=== PATIENT | female | born 1950 | race Caucasian/White ===

== ENCOUNTER 2022-10-15 13:55 | Emergency (ER) | payer MEDICARE ==
[~2022-10-15] VITALS: Ht 170.2 cm; Wt 112.3 kg
[~2022-10-15 13:55] MED LIST: ALBUTEROL2.5 MG/3 M INH; ASPIRIN EC81 MG PO; BP MED PO; CLONIDINE HCL0.1 MG PO; IPRATROPIU0.2 MG/1 M IH; LASIX80 MG PO; LEVOTHYROXINE50 MCG PO; LISINOPRIL20 MG PO; METFORMIN HCL1000 MG PO; NORCO 5-325 TA1 EACH PO; PROVENTIL HFA6.7 GM INH; ROPINIROLE HCL2 MG PO; SIMVASTATIN20 MG PO; SINGULAIR10 MG PO; TYLENOL325 MG PO
--- OUTSIDE RECORDS SUMMARY | 2022-10-15 13:57 | XMS ---
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 Matias has no Care Guidelines for this patient. Karri VISIT COUNT (12 MO.) 1 NAJMA Mcgregor TOTAL 1 NOTE: Visits indicate total known visits. ED/C VISIT TRACKING (12 MO.) 10/15/2022 13:56 NAJMA Guzman [place] TYPE: Emergency COMPLAINT: - SKIN PROBLEM INPATIENT VISIT TRACKING (12 MO.) No inpatient visits to display in this time frame [email or web address]
[2022-10-15] MEDS ORDERED: CEPHALEXIN500 M1 PO (15:06)
== END 2022-10-15 15:44 | disposition home or self-care (01) ==
LOC: ED 13:55
DX: N90.89 Other specified noninflammatory disorders of vulva and perineum (principal); I10 Essential (primary) hypertension; E11.9 Type 2 diabetes mellitus without complications; Z85.3 Personal history of malignant neoplasm of breast; J44.9 Chronic obstructive pulmonary disease, unspecified; E78.00 Pure hypercholesterolemia, unspecified; F17.200 Nicotine dependence, unspecified, uncomplicated; Z79.899 Other long term (current) drug therapy; Z79.82 Long term (current) use of aspirin; Z79.84 Long term (current) use of oral hypoglycemic drugs
CPT/HCPCS: 99282; A9270

== ENCOUNTER 2023-12-26 11:48 | Day surgery (SDC) | payer MEDICARE ==
[~2023-12-26] VITALS: Ht 170.2 cm; Wt 104.5 kg
[~2023-12-26 11:48] MED LIST changes: +CEPHALEXIN500 M1 PO; +IBLOOD GLUCOSE TEST STRIP 1 EA TEST VI PRN; +LACTATED RINGER'S 1,000 ML IV SCH; +LIDOCAINE HCL 1% 5 ML SDV INJ ONE; +LIDOCAINE HCL 4% 50 ML BTL TOP SCH; +MIDAZOLAM HCL 5 MG/5 ML VIAL IV PRN; +fentaNYL citrate 100 MCG/2 ML VIAL IV PRN
[2023-12-26 12:08] VITALS: BP 130/57
[2023-12-26] MEDS ORDERED: MIDAZOLAM HCL 5 MG/5 ML VIAL ONE ×2 (12:44→13:26)
[2023-12-26] MEDS ORDERED: fentaNYL citrate 100 MCG/2 ML VIAL ONE ×2 (12:44→13:25)
--- NOTE | 2023-12-26 14:09 | NUR ---
12/26/23 1409 Sophie Fowler 1401 PT TO PACU SLEEPING BUT AROUSABLE DENIES PAIN AND NAUSEA.
[2023-12-26 14:31] VITALS: BP 119/57
--- NOTE | 2023-12-27 08:37 | OR ---
[facility] [address], [place] [address] Signed DATE OF OPERATION: 12/26/2023 SURGEON: Monico Howard MD PREOPERATIVE DIAGNOSIS: Colon screening. POSTOPERATIVE DIAGNOSIS: Multiple polyps (11). PROCEDURE: Total colonoscopy to cecum with cold morcellation polypectomy x7 and cold snare polypectomy x4. ANESTHESIA: Intravenous sedation; fentanyl 150 mcg, Versed 9 mg. INDICATION: This 73-year-old woman is a patient Dr. Mendiola at [facility]. She underwent colonoscopy in the distant past with uncertain findings. The patient is uncertain whether she actually had any polyps. 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 She has no known recurrent breast cancer. She is free of symptoms of bleeding, diarrhea or constipation. She is now to undergo colonoscopy. She understands the risk of bleeding, infection, and perforation. FINDINGS: The prep was excellent. Complete colonoscopy was undertaken to the cecum. There were multiple polyps throughout the colon. This included on the ileocecal valve. The left and right transverse and mid colon as well as the left colon, sigmoid, rectosigmoid, and rectum. PROCEDURE IN DETAIL: The patient was brought to the endoscopy suite and placed in lateral decubitus position, given intravenous sedation to the point of slurred speech and nystagmus. Digital rectal examination was normal. An Olympus video colonoscope was passed in the rectum and manipulated throughout the colon. There were several polyps along the way, which were excised including cold snare polypectomy of a mid left colonic polyp and two polyps of the left transverse colon. Electronically Signed By: MONICO HOWARD MD 12/27/23 0837 PATIENT NAME: LASHA REY OPERATIVE REPORT DATE OF : 48 REPORT #: [id number] PHYSICIAN: MONICO HOWARD MD PCP: STEFFEN MENDIOLA MD REPORT IS CONFIDENTIAL AND NOT TO BE RELEASED WITHOUT AUTHORIZATION [facility] [address] [place], [place] [address] Signed Scope was passed ultimately to the cecum. There was a small polyp of the ileocecal valve, which was excised with cold morcellation technique. The scope was then withdrawn, examination once again undertaken. Another polyp in the right transverse colon and mid transverse colon was excised with cold morcellation technique. Two additional with cold morcellation technique, another of the left transverse with snare technique and two others in the sigmoid and one in the rectosigmoid. In total of 11 polyps were resected, four by snare technique. She was taken to the recovery room in good condition. Retroflexed view was normal. ASSESSMENT: Multiple small polyps distributed throughout the colon. PLAN: Recommend repeat colonoscopy in one year due to the numerous polyps noted. Consideration for propofol sedation in the future for optimal tolerance. MD HANNAH Herrera/MINDA /[id number] cc: Dr. Mendiola [facility] Copies: ~ Electronically Signed By: MONICO HOWARD MD 12/27/23 0837 PATIENT NAME: ROCHELLEHEATHERLASHAPhilip ENAMORADO OPERATIVE REPORT DATE OF : 48 REPORT #: [id number] PHYSICIAN: MONICO HOWARD MD PCP: STEFFEN MENDIOLA MD REPORT IS CONFIDENTIAL AND NOT TO BE RELEASED WITHOUT AUTHORIZATION
--- NOTE | 2023-12-29 17:52 | PATH ---
[facility] [address] [place] [address] Signed SPECIMEN(S): A DESCENDING POLYP SPECIMEN(S): B DESCENDING POLYP SPECIMEN(S): C TRANSVERSE POLYP SPECIMEN(S): D RIGHT TRANSVERSE POLYP SPECIMEN(S): E ILEOCECAL VALVE POLYP SPECIMEN(S): F MID TRANSVERSE POLYPS SPECIMEN(S): G LEFT TRANSVERSE POLYP SPECIMEN(S): H SIGMOID POLYP SPECIMEN(S): I RECTOSIGMOID POLYP SPECIMEN SOURCE: A. DESCENDING POLYP B. DESCENDING POLYP C. TRANSVERSE POLYP D. RIGHT TRANSVERSE POLYP E. ILEOCECAL VALVE POLYP F. MID TRANSVERSE POLYPS G. LEFT TRANSVERSE POLYP H. SIGMOID POLYP I. RECTOSIGMOID POLYP CLINICAL HISTORY: Pre: Prior colonoscopy in the distant past, no records available for results. Post: Multiple polyps. FINAL PATHOLOGIC DIAGNOSIS: A. Descending polyp: - Tubular adenoma (one fragment). B. Descending polyp: - Tubular adenoma. C. Transverse polyp: - Tubular adenoma. D. Right transverse polyp: - Tubular adenoma (one fragment). - Hyperplastic polyp (one fragment). E. Ileocecal valve polyp: - Tubular adenoma (three fragments). F. Mid transverse polyps: - Tubular adenoma (two fragments). G. Left transverse polyp: - Tubular adenoma (multiple fragments). PATIENT NAME: LASHA REY PATHOLOGY DATE OF : 48 REPORT #: [id number] PHYSICIAN: ERIKA PATHOLOGY PCP: STEFFEN WALLS MD REPORT IS CONFIDENTIAL AND NOT TO BE RELEASED WITHOUT AUTHORIZATION [facility] [address] [place], [place] [address] Signed H. Sigmoid polyp: - Hyperplastic polyp (one fragment). I. Rectosigmoid polyp: - Hyperplastic polyp (two fragments). JVR:vahe MICROSCOPIC EXAMINATION: Histologic sections of all submitted blocks are examined by light microscopy. These findings, together with the gross examination, support the pathologic diagnosis. GROSS DESCRIPTION: A. The specimen, labeled and designated "Rachel, " and designated on the requisition "descending/left polypectomy," is received in formalin and consists of one fragment of soft lyon tissue that is up to 0.3 cm in greatest dimension. Entirely submitted in (A1). B. The specimen, labeled and designated "Rachel, " and designated on the requisition "descending/left," is received in formalin and consists of one fragment of soft lyon tissue that is up to 0.6 cm in greatest dimension. Entirely submitted in (B1). C. The specimen, labeled and designated "Rachel, " and designated on the requisition "transverse polyp," is received in formalin and consists of one fragment of soft lyon tissue that is up to 0.8 cm in greatest dimension. Entirely submitted in (C1). D. The specimen, labeled and designated "Mazindorinda, " and designated on the requisition "right transverse polyp," is received in formalin and consists of two fragments of soft lyon tissue that are up to 0.3 cm in greatest dimension. Entirely submitted in (D1). E. The specimen, labeled and designated "Mazindorinda, " and designated on the requisition "ileocecal valve polyp," is received in formalin and consists of three fragments of soft lyon tissue that are up to 0.4 cm in greatest dimension. Entirely submitted in (E1). F. The specimen, labeled and designated "Skeman, " and designated on the requisition "mid transverse," is received in formalin and consists of four fragments of soft lyon tissue that are up to 0.5 cm in greatest dimension. Entirely submitted in (F1). G. The specimen, labeled and designated "Rachel, " and designated on the requisition "left transverse polyp," is received in formalin and consists of four fragments of soft lyon tissue that are up to 1.5 cm in greatest dimension. Entirely submitted in (G1). PATIENT NAME: LASHA REY PATHOLOGY DATE OF : 48 REPORT #: [id number] PHYSICIAN: ERIKA PATHOLOGY PCP: STEFFEN WALLS MD REPORT IS CONFIDENTIAL AND NOT TO BE RELEASED WITHOUT AUTHORIZATION [facility] [address] [place], [place] [address] Signed H. The specimen, labeled and designated "Rachel, " and designated on the requisition "sigmoid polyp," is received in formalin and consists of one fragment of soft lyon tissue that is up to 0.3 cm in greatest dimension. Entirely submitted in (H1). I. The specimen, labeled and designated "Rachel, " and designated on the requisition "rectosigmoid polyp," is received in formalin and consists of two fragments of soft lyon tissue that are up to 0.3 cm in greatest dimension. Entirely submitted in (I1). TW (under the direct supervision of a pathologist) The Gross Description was prepared using a voice recognition system. The report was reviewed for accuracy; however, sound-alike word errors, addition and/or deletions may occur. If there is any question about this report, please contact Client Services. PERFORMING LABORATORY: Technical component was performed by [facility], [address] [place] [id number] (CLIA# [id number]). Professional interpretation was performed by [facility], [address] [place] [id number] (CLIA#: [id number]). Diagnostician: Ashok Paz MD Pathologist Electronically Signed 12/29/2023 Copies: ~ PATIENT NAME: LASHA REY PATHOLOGY DATE OF : 48 REPORT #: [id number] PHYSICIAN: ERIKA JORGE PCP: STEFFEN WALLS MD REPORT IS CONFIDENTIAL AND NOT TO BE RELEASED WITHOUT AUTHORIZATION
== END 2023-12-26 14:45 | disposition home or self-care (01) ==
LOC: OPS 11:48 → DS 11:48 → OPS 13:00
PROVIDERS: ATTEND Surgery
PROC: 0DBL8ZX Excision of Transverse Colon, Via Natural or Artificial Opening Endoscopic, Diagnostic (ICD-10-PCS; 2023-12-26)
PROC: 0DBN8ZX Excision of Sigmoid Colon, Via Natural or Artificial Opening Endoscopic, Diagnostic (ICD-10-PCS; 2023-12-26)
PROC: 0DBC8ZX Excision of Ileocecal Valve, Via Natural or Artificial Opening Endoscopic, Diagnostic (ICD-10-PCS; 2023-12-26)
PROC: 0DBM8ZX Excision of Descending Colon, Via Natural or Artificial Opening Endoscopic, Diagnostic (ICD-10-PCS; principal; 2023-12-26 13:00)
DX: Z12.11 Encounter for screening for malignant neoplasm of colon (principal); D12.4 Benign neoplasm of descending colon; D12.0 Benign neoplasm of cecum; D12.3 Benign neoplasm of transverse colon; C50.911 Malignant neoplasm of unspecified site of right female breast; I10 Essential (primary) hypertension; E66.9 Obesity, unspecified; E03.9 Hypothyroidism, unspecified; E11.9 Type 2 diabetes mellitus without complications; F17.210 Nicotine dependence, cigarettes, uncomplicated; J45.909 Unspecified asthma, uncomplicated; Z68.36 Body mass index [BMI] 36.0-36.9, adult; Z79.4 Long term (current) use of insulin; Z79.899 Other long term (current) drug therapy; Z79.890 Hormone replacement therapy
CPT/HCPCS: 88305; 99153; G0500; J2250; J3010; J7121

== ENCOUNTER 2025-07-08 15:54 | Emergency (ER) | payer OTHER, MEDICARE ==
[~2025-07-08] VITALS: Ht 170.2 cm; Wt 99.0 kg
--- OUTSIDE RECORDS SUMMARY | ~2025-07-08 | XMS | Continuity of Care Document ---
Demographics + + + | Address | [facility] [address] [address] | | | [place] [address] | + + + | Preferred Language | Unknown | + + + | Marital Status | | + + + | Adventist Affiliation | Unknown | + + + | Race | White | + + + | Ethnic Group | Not or | + + + Author + + + | Author | [facility] | + + + | Organization | [facility] | + + + | Address | [address] | | | [place] [address] | + + + | Phone | | + + + Care Team Providers + + + + | Care Dungeon Master Name | Role | Phone | + + + + Unavailable | Unavailable | + + + + Unavailable | Unavailable | + + + + Allergies and Intolerances + + + + + + | date | description | facility | reaction | severity | + + + + + + | 2025-04-09 | UNK | [facility] - | (no reaction) | (no severity) | | 00:00 | | [facility] | | | | | | [facility] | | | + + + + + + Encounters No information. Functional Status No information. Immunizations No information. Medications + + + + | date | description | facility | + + + + | (no date) | CETIRIZINE HCL | [facility] | | | | [facility] | + + + + | (no date) | Budesonide/Formoterol | [facility] | | | Fumarate | [facility] | + + + + | (no date) | MONTELUKAST SODIUM | [facility] | | | | [facility] | + + + + | (no date) | IPRATROPIUM BROMIDE | [facility] | | | | [facility] | + + + + | (no date) | SPIRONOLACTONE | [facility] | | | | [facility] | + + + + | (no date) | FUROSEMIDE | [facility] | | | | [facility] | + + + + | (no date) | CALCITRIOL | [facility] | | | | [facility] | + + + + | (no date) | GABAPENTIN | [facility] | | | | [facility] | + + + + | (no date) | ROPINIROLE HCL | [facility] | | | | [facility] | + + + + | (no date) | SIMVASTATIN | [facility] | | | | [facility] | + + + + | (no date) | LISINOPRIL | [facility] | | | | [facility] | + + + + | (no date) | ASPIRIN | [facility] | | | | [facility] | + + + + | (no date) | ATORVASTATIN | [facility] | | | | [facility] | + + + + | (no date) | ALBUTEROL SULFATE | [facility] | | | | [facility] | + + + + | (no date) | METFORMIN HCL | [facility] | | | | [facility] | + + + + | (no date) | CLONIDINE HCL | [facility] | | | | [facility] | + + + + | (no date) | LEVOTHYROXINE SODIUM | [facility] | | | | [facility] | + + + + Problems No information. Procedures + + + + | date | description | facility | + + + + | 2025-04-09 00:00 | Colonoscopy with biopsy of | [facility] | | | colon | [facility] | + + + + | 2025-04-09 00:00 | Colonoscopy with biopsy of | [facility] | | | colon | [facility] | + + + + Results/Labs +--------+--------+ +---------+--------+---------+ | test | date | facility | value | unit | notes | +--------+--------+ +---------+--------+---------+ + + | Result panel 1 | + + + + + +-------+---------+ + | Glucose | 2025-04-09 | | 137 | mg/dL | (missing) | | SerPl-mCnc | 11:40:07 | [facility] | [facility] | | | | + + + +-------+---------+ + + + | Result panel 2 | + + + + + +------+ + + | CO2 | 2025-04-09 | | 25 | (missing) | (missing) | | SerPl-sCnc | 11:40:07 | [facility] | | | | | | [facility] | | | | + + + +------+ + + + + | Result panel 3 | + + + + + +--------+ + + | Anion Gap | 2025-04-09 | | 12.1 | (missing) | (missing) | | SerPl | 11:40:07 | [facility] | | | | | Calculated.4 | [facility] | [facility] | | [facility] | | [facility] | | | | + + + +--------+ + + + + | Result panel 4 | + + + + + +-------+---------+ + | Calcium | 2025-04-09 | | 9.2 | mg/dL | (missing) | | SerPl-mCnc | 11:40:07 | [facility] | | | | | | [facility] | | | | + + + +-------+---------+ + + + | Result panel 5 | + + + + + +------+---------+ + | BUN | 2025-04-09 | | 14 | mg/dL | (missing) | | Jd-Ijeoma | 11:40:07 | [facility] | | | | | [facility] | | | | + + + +------+---------+ + + + | Result panel 6 | + + + + + +--------+---------+ + | Creat | 2025-04-09 | | 1.26 | mg/dL | (missing) | | SerPl-mCnc | 11:40:07 | [facility] | | | | | | [facility] | | | | + + + +--------+---------+ + + + | Result panel 7 | + + + + + +------+ + + | eGFRcr | 2025-04-09 | | 45 | (missing) | (missing) | | SerPlBld | 11:40:07 | [facility] | | | | | CKD-EPI 2020 | | [facility] | | | | + + + +------+ + + + + | Result panel 8 | + + + + + +---------+ + + | BUN/Creat | 2025-04-09 | | 11.11 | (missing) | (missing) | | SerPl | 11:40:07 | [facility] | | | | | | | - | | | | | | | [facility] | | | | + + + +---------+ + + + + | Result panel 9 | + + + + + +-------+ + + | Sodium | 2025-04-09 | | 125 | (missing) | (missing) | | SerPl-sCnc | 11:40:07 | [facility] | | | | | | [facility] | | | | + + + +-------+ + + + + | Result panel 10 | + + + + + +-------+ + + | Potassium | 2025-04-09 | | 5.1 | (missing) | (missing) | | SerPl-sCnc | 11:40:07 | [facility] | | | | | [facility] | | | | + + + +-------+ + + + + | Result panel 11 | + + + + + +------+ + + | Chloride | 2025-04-09 | | 93 | (missing) | (missing) | | SerPl-sCnc | 11:40:07 | [facility] | | | | | | [facility] | | | | + + + +------+ + + + + | Result panel 12 | + + + + + +-------+ + + | Glucose | 2025-04-09 | | 125 | (missing) | (missing) | | [facility] | 11:47:07 | [facility] | | | | | [facility] | | | | + + + +-------+ + + Social History +--------+ + + | date | description | facility | +--------+ + + Vital Signs + + +---------+---------+ | date | measurement | value | units | + + +---------+---------+ | 2025-04-09 00:00 | BP_diastolic | 56 | mmHg | + + +---------+---------+ | 2025-04-09 00:00 | BP_systolic | 139 | mmHg | + + +---------+---------+ | 2025-04-09 00:00 | heart_rate | 65 | /min | + + +---------+---------+ | 2025-04-09 00:00 | o2_saturation | 98 | % | + + +---------+---------+ | 2025-04-09 00:00 | respiration_rate | 16 | /min | + + +---------+---------+ | 2025-04-09 00:00 | temperature_metric | 36.56 | C | | | | | | + + +---------+---------+ | 2025-04-09 00:00 | | 97.8 | F | | | temperature_standar | | | | | d | | | + + +---------+---------+"
[~2025-07-08 15:54] MED LIST changes: +ALDACTONE25 MG PO; +ASPIRIN EC325 MG PO; -ASPIRIN EC81 MG PO; +BUDESONIDE-FO10.2 G1 INH; +CALCITRIOL0.25 MCG PO; +GABAPENTIN300 MG PO; -IBLOOD GLUCOSE TEST STRIP 1 EA TEST VI PRN; -IPRATROPIU0.2 MG/1 M IH; +IPRATROPIUM BRO30 ML NAS; -LACTATED RINGER'S 1,000 ML IV SCH; -LIDOCAINE HCL 1% 5 ML SDV INJ ONE; -LIDOCAINE HCL 4% 50 ML BTL TOP SCH; +LIPITOR10 MG PO; -MIDAZOLAM HCL 5 MG/5 ML VIAL IV PRN; +MULTI VITAMIN1 EACH PO; +SEMAGLUTID0.25 MG/0. SUB-Q; +VENTOLIN HFA18 GM INH; +ZYRTEC10 M3 PO; -fentaNYL citrate 100 MCG/2 ML VIAL IV PRN
[2025-07-08] MEDS ORDERED: AMOX TR-K CLV1 EAC1 PO (19:09)
[2025-07-08] MEDS ORDERED: AMOXICILLIN/CLAVULANATE K 875 MG TAB PO ONE (19:15)
[2025-07-08 19:23] VITALS: BP 141/56
== END 2025-07-08 19:24 | disposition home or self-care (01) ==
LOC: ED 15:54
DX: S51.852A Open bite of left forearm, initial encounter (principal); I10 Essential (primary) hypertension; E11.9 Type 2 diabetes mellitus without complications; J44.9 Chronic obstructive pulmonary disease, unspecified; E78.00 Pure hypercholesterolemia, unspecified; F17.200 Nicotine dependence, unspecified, uncomplicated; W54.0XXA Bitten by dog, initial encounter; Z79.51 Long term (current) use of inhaled steroids; Z79.899 Other long term (current) drug therapy
CPT/HCPCS: 99283

== ENCOUNTER 2025-07-23 17:34 | Emergency (ER) | payer MEDICARE ==
[~2025-07-23] VITALS: Ht 170.2 cm; Wt 98.1 kg
--- OUTSIDE RECORDS SUMMARY | ~2025-07-23 | XMS | Continuity of Care Document ---
Demographics + + + | Address | [facility] [address] | | | [place] [address] | + + + | Preferred Language | Unknown | + + + | Marital Status | | + + + | Cheondoism Affiliation | Unknown | + + + | Race | White | + + + | Ethnic Group | Not or | + + + Author + + + | Author | [facility] | + + + | Organization | [facility] | + + + | Address | [address] | | | [place] [address] | + + + | Phone | | + + + Care Team Providers + + + + | Care Math Coach Name | Role | Phone | + + + + Unavailable | Unavailable | + + + + Unavailable | Unavailable | + + + + Allergies No information. Encounters No information. Functional Status No information. Immunizations No information. Medications + + + + | date | description | facility | + + + + | (no date) | CETIRIZINE HCL | [facility] | | | | [facility] | + + + + | (no date) | Budesonide/Formoterol | [facility] | | | Fumarate | [facility] | + + + + | (no date) | MONTELUKAST SODIUM | [facility] | | | | [facility] | + + + + | (no date) | IPRATROPIUM BROMIDE | [facility] | | | | [facility] | + + + + | (no date) | SPIRONOLACTONE | [facility] | | | | [facility] | + + + + | (no date) | FUROSEMIDE | [facility] | | | | [facility] | + + + + | (no date) | CALCITRIOL | [facility] | | | | [facility] | + + + + | (no date) | GABAPENTIN | [facility] | | | | [facility] | + + + + | (no date) | ROPINIROLE HCL | [facility] | | | | [facility] | + + + + | (no date) | SIMVASTATIN | [facility] | | | | [facility] | + + + + | (no date) | LISINOPRIL | [facility] | | | | [facility] | + + + + | (no date) | ASPIRIN | [facility] | | | | [facility] | + + + + | 2025-07-08 00:00 | AMOXICILLIN/POTASSIUM CLAV | [facility] | | | | [facility] | + + + + | (no date) | ATORVASTATIN | [facility] | | | | [facility] | + + + + | (no date) | ALBUTEROL SULFATE | [facility] | | | | [facility] | + + + + | (no date) | METFORMIN HCL | [facility] | | | | [facility] | + + + + | (no date) | CLONIDINE HCL | [facility] | | | | [facility] | + + + + | (no date) | LEVOTHYROXINE SODIUM | [facility] | | | | [facility] | + + + + Problems + + + + | date | description | facility | + + + + | 2025-07-08 00:00 | Dog bite of upper | [facility] | | | extremity | [facility] | + + + + Procedures No information. Results/Labs No information. Social History +--------+ + + | date | description | facility | +--------+ + + Vital Signs + + + +---------+ | date | measurement | value | units | + + + +---------+ | 2025-07-08 00:00 | BMI | 34.2 | kg/m2 | + + + +---------+ | 2025-07-08 00:00 | BP_diastolic | 56 | mmHg | + + + +---------+ | 2025-07-08 00:00 | BP_systolic | 141 | mmHg | + + + +---------+ | 2025-07-08 00:00 | heart_rate | 71 | /min | + + + +---------+ | 2025-07-08 00:00 | height_metric | 170.18 | cm | + + + +---------+ | 2025-07-08 00:00 | height_standard | 67 | in | + + + +---------+ | 2025-07-08 00:00 | o2_saturation | 99 | % | + + + +---------+ | 2025-07-08 00:00 | respiration_rate | 17 | /min | + + + +---------+ | 2025-07-08 00:00 | | 98.1 | F | | | temperature_standar | | | | | d | | | + + + +---------+ | 2025-07-08 00:00 | weight_metric | 98.999 | kg | + + + +---------+ | 2025-07-08 00:00 | weight_standard | 218.256 | lb | + + + +---------+"
[~2025-07-23 17:34] MED LIST changes: +AMOX TR-K CLV1 EAC1 PO
--- OUTSIDE RECORDS SUMMARY | 2025-07-23 17:35 | XMS ---
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 - 2 Visits in 30 Days CARE PROVIDERS VICENTE LEMUS Physician Current PHONE: Unknown Matias has no Care Guidelines for this patient. Karri VISIT COUNT (12 MO.) 2 [facility] TOTAL 2 NOTE: Visits indicate total known visits. ED/UCC VISIT TRACKING (12 MO.) 07/23/2025 17:35 [facility] [place] TYPE: Emergency COMPLAINT: - RECTAL BLEEDING 07/08/2025 15:[address] [facility] [place] TYPE: Emergency COMPLAINT: - DOG BITE DIAGNOSES: - Bitten by dog, initial encounter - Chronic obstructive pulmonary disease, unspecified - Essential (primary) hypertension - group home (current) use of inhaled steroids - Nicotine dependence, unspecified, uncomplicated - Open bite of left forearm, initial encounter - Open bite of left upper arm, initial encounter - Other fci (current) drug therapy - Pure hypercholesterolemia, unspecified - Type 2 diabetes mellitus without complications INPATIENT VISIT TRACKING (12 MO.) No inpatient visits to display in this time frame [id number]
[2025-07-23] MEDS ORDERED: SODIUM CHLORIDE 0.9% 1,000 ML IV ONE (20:45)
[2025-07-23 20:48] LABS: BASOPHILS 0.4 % (0.1-1.2); EOSINOPHILS 1.0 % (0.7-5.8); LYMPHOCYTES 12.2 % (19.3-51.7); MCH 29.4 PG (25.6-32.2); MCHC 32.4 g/dL (32.2-35.5); MCV 90.8 fL (79.4-94.8); MONOCYTES 13.9 % (4.7-12.5); NEUTROPHILS 72.2 % (34.0-71.1); RBC 4.12 M/uL (3.93-5.22)
[2025-07-23 21:05] LABS: ALT (SGPT) 33.0 U/L (14-59); AST (SGOT) 37.0 U/L (15-37); GLOMERULAR FILTRATION RATE,EST 26.0 mL/min (>60); PROTEIN, TOTAL 7.1 g/dL (6.4-8.2); UREA NITROGEN 32.0 mg/dL (7-18)
[2025-07-23 21:29] LABS: ABO O; ANTIBODY SCREEN NEGATIVE; RH POSITIVE
[2025-07-23] MEDS ORDERED: predniSONE 20 MG TAB PO ONE (22:45)
[2025-07-23] MEDS ORDERED: MESALAMINE 400 MG CAPCR PO ONE (22:45)
[2025-07-23] MEDS ORDERED: AMOXICILLIN/CLAVULANATE K 875 MG HOME.PACK PO ONE (22:45)
[2025-07-23] MEDS ORDERED: LACTATED RINGER'S 1,000 ML IV ONE (22:45)
[2025-07-23] MEDS ORDERED: PREDNISONE20 MG PO (22:47)
[2025-07-23] MEDS ORDERED: AMOX TR-K CLV1 EAC1 PO (22:47)
[2025-07-23] MEDS ORDERED: MESALAMINE DR400 MG PO (22:47)
[2025-07-23 23:40] VITALS: BP 115/44
== END 2025-07-23 23:40 | disposition home or self-care (01) ==
LOC: ED 17:34
PROVIDERS: Family Medicine
DX: K51.90 Ulcerative colitis, unspecified, without complications (principal); I10 Essential (primary) hypertension; E11.9 Type 2 diabetes mellitus without complications; J44.9 Chronic obstructive pulmonary disease, unspecified; E78.00 Pure hypercholesterolemia, unspecified; F17.200 Nicotine dependence, unspecified, uncomplicated; Z79.51 Long term (current) use of inhaled steroids; Z79.899 Other long term (current) drug therapy
CPT/HCPCS: 36415; 74177; 80053; 83690; 85025; 86850; 86900; 86901; 96361; 96374; 99284-25; J2405; J7030; J7121; J7512; Q9967